=== PATIENT | male | born 1965 | race African-American/Black ===

== ENCOUNTER 2025-04-13 19:03 | Emergency (ER) | payer MEDICAID ==
[~2025-04-13] VITALS: Ht 180.3 cm; Wt 80.0 kg
[2025-04-13 19:09] VITALS: O2SAT 100
[2025-04-13] MEDS: ASPIRIN 81MG TABLET PO ONE (19:48)
[2025-04-13 19:53] LABS: BASOPHILS % 1.2 % (0.0-2.0); EOSINOPHILS % 1.9 % (0.0-5.0); HEMATOCRIT. 41.8 % (42.0-52.0); HEMOGLOBIN. 13.8 g/dL (14.0-18.0); LYMPHOCYTES % 30.1 % (20.0-50.0); MEAN PLATELET VOLUME 9.0 fl (7.4-10.4); MONOCYTES % 14.4 % (2.0-8.0); NEUTROPHILS % 52.4 % (40.0-76.0); PLATELET 167 x1000/uL (130-400); RED BLOOD CELL COUNT 4.55 mill/uL (4.7-6.1); RED CELL DISTRIBUTION WIDTH 15.0 % (11.6-14.6)
[2025-04-13 20:03] LABS: INR 1.0
[2025-04-13 20:06] LABS: CREATININE 1.3 mg/dL (0.6-1.3); UREA NITROGEN BLOOD 16 mg/dL (9-23)
[2025-04-13 20:08] LABS: ASPARTATE AMINOTRANSFERASE 18 IU/L (<34); BILIRUBIN DIRECT 0.1 mg/dL (<=3.0); BILIRUBIN TOTAL 0.3 mg/dL (0.1-1.0); PROTEIN TOTAL 6.6 g/dL (6.0-8.3); TROPONIN I HIGH SENSITIVITY < 4 ng/L (3.0-53)
[2025-04-13 22:56] VITALS: BP 148/80; PULSE 80; RESP 18; TEMP 37.1; O2SAT 97
== END 2025-04-13 23:02 | disposition left against medical advice (07) ==
LOC: ER 19:44 → EDBEDREQTM 22:38 → EDBEDREQ 22:38 → ENRESERV 22:46 → CANBEDREQ 22:58 → ER 23:02
DX: R07.89 Other chest pain (principal); E78.5 Hyperlipidemia, unspecified; I11.9 Hypertensive heart disease without heart failure; I25.10 Atherosclerotic heart disease of native coronary artery without angina pectoris; Z79.899 Other long term (current) drug therapy
CPT/HCPCS: 80076; 80048; 83735; 85025; 85610; 84484; 36415; 71045; 93005; 99285; Z7610